=== PATIENT | male | born 1935 | race Caucasian/White ===

== ENCOUNTER → 2016-12-23 | Outpatient (CLI) | payer MEDICARE ==
[~2016-12-23] MED LIST: ACET1CAP18 PO; ALDA50TA2 PO; ALLO300T2 PO; AMLO5TAB2 PO; ASPI81CH CHEW; BENA25TA3 PO; CEFT500T3 PO; FURO20TA PO; MIDO2.5T PO; MULT1TAB84 PO
[2016-12-23 10:16] LABS: HEMATOCRIT 43.4 % (39.0-51.0); MEAN CELL VOLUME 97.6 FL (80.0-100.0); MEAN CORPUSCULAR HEMOGLOBIN 31.8 PG (27.0-34.0); MEAN CORPUSCULAR HGB CONC 32.5 % (32.0-36.0); PLATELET COUNT 55 TH/MM3 (150-450); RED BLOOD COUNT 4.44 MIL/MM3 (4.50-5.90); RED CELL DISTRIBUTION WIDTH 16.6 % (11.6-17.2); WHITE BLOOD COUNT 6.6 TH/MM3 (4.0-11.0)
[2016-12-23 10:52] LABS: ALKALINE PHOSPHATASE 204 U/L (45-117); TOTAL BILIRUBIN ADULT 1.6 MG/DL (0.2-1.0)
[2016-12-23 10:55] LABS: REVIEW FLAG FINAL
[2016-12-23 11:13] LABS: ALT (GPT) 32 U/L (12-78); AMYLASE 36 U/L (25-115); ANION GAP 8 MEQ/L (5-15); AST (GOT) 46 U/L (15-37); BLOOD UREA NITROGEN 14 MG/DL (7-18); CHLORIDE 102 MEQ/L (98-107); GLOMERULAR FILTRATION RATE 66 ML/MIN (>89); POTASSIUM 3.8 MEQ/L (3.5-5.1); SODIUM (NA) 137 MEQ/L (136-145)
== END ==
LOC: PLAB 08:13
PROVIDERS: ATTEND Family Medicine
DX: R10.10 Upper abdominal pain, unspecified (principal); R53.83 Other fatigue
CPT/HCPCS: 36415; 80053; 82150; 83690; 85027

== ENCOUNTER → 2016-12-26 | Outpatient (CLI) | payer MEDICARE ==
[2016-12-26 11:59] LABS: INTERNATIONAL NORMALIZED RATIO 1.1 RATIO; PROTHROMBIN TIME - PATIENT 12.3 SEC (9.8-11.6)
[2016-12-26 13:06] LABS: HEMATOCRIT 43.4 % (39.0-51.0); MEAN CELL VOLUME 97.9 FL (80.0-100.0); MEAN CORPUSCULAR HEMOGLOBIN 32.1 PG (27.0-34.0); MEAN CORPUSCULAR HGB CONC 32.8 % (32.0-36.0); PLATELET COUNT 54 TH/MM3 (150-450); RED BLOOD COUNT 4.43 MIL/MM3 (4.50-5.90); WHITE BLOOD COUNT 6.5 TH/MM3 (4.0-11.0)
[2016-12-26 13:08] LABS: REVIEW FLAG FINAL
[2016-12-26 13:27] LABS: WESTERGREN SEDIMENTATION RATE 13 mm/hr (0-20)
[2016-12-26 13:32] LABS: POTASSIUM 4.1 MEQ/L (3.5-5.1)
== END ==
LOC: PLAB 11:15
PROVIDERS: ATTEND Family Medicine
DX: R18.8 Other ascites (principal); D64.9 Anemia, unspecified; I10 Essential (primary) hypertension; M35.3 Polymyalgia rheumatica; K76.0 Fatty (change of) liver, not elsewhere classified; R16.1 Splenomegaly, not elsewhere classified
CPT/HCPCS: 36415; 82140; 82390; 82565; 83520; 84132; 84520; 85027; 85610; 85652

== ENCOUNTER → 2016-12-30 | Outpatient (CLI) | payer MEDICARE ==
[2017-01-05 22:17] LABS: HEREDITARY HEMOCHROM SPECIMEN WB Whole Blood (())
== END ==
LOC: PLAB 07:45
PROVIDERS: ATTEND Family Medicine
DX: D64.9 Anemia, unspecified (principal); I10 Essential (primary) hypertension; M35.3 Polymyalgia rheumatica; R18.8 Other ascites; K76.0 Fatty (change of) liver, not elsewhere classified; R16.1 Splenomegaly, not elsewhere classified; R94.5 Abnormal results of liver function studies; Z13.818 Encounter for screening for other digestive system disorders
CPT/HCPCS: 80074; 81256

== ENCOUNTER 2017-01-13 10:00 | Day surgery (SDC) | payer MEDICARE ==
[2017-01-13 10:27] VITALS: BP 120/64; PULSE 82; RESP 16; TEMP 96.9; O2SAT 95
[2017-01-13 11:15] VITALS: BP 119/65; PULSE 74; RESP 20; TEMP 98.4; O2SAT 91
[2017-01-13 11:30] VITALS: BP 117/65; PULSE 73; RESP 18; O2SAT 93
--- NOTE | 2017-01-13 11:45 | RADRPT ---
EXAM DATE/TIME: 01/13/2017 10:18 [facility] COMPARISON: No previous studies available for comparison. EXTERNAL COMPARISON: [facility], CT ABDOMEN & PELVIS W CONTRAST, Dec 24 2016. INDICATIONS : Ascites. MEDICAL HISTORY : Congestive heart failure. Fatty liver. Liver disease. Splenomegaly. Dyspena. Thyroid disease. Skin cancer. SURGICAL HISTORY : Tonsillectomy. Skin cancer removal. ENCOUNTER: Initial ACUITY: 3 weeks PAIN SCORE: 0/10 LOCATION: Right lower quadrant FLUID: Total volume of 4,200 cc of clear, red fluid was removed. Fluid was sent to lab for ordered studies. Post procedure scanning reveals no hematoma or other complication. TECHNIQUE: 1. Ultrasound guidance for abdominal paracentesis. 2. Paracentesis. The risks, benefits, and alternatives to ultrasound guided paracentesis were explained to the patient in detail including the risk of bleeding and infection. Written and verbal informed consent was obt ained. With the patient on the ultrasound table, ultrasound imaging was used to select the most appropriate approach for paracentesis. Overlying skin was prepped and draped in the usual sterile fashion and wi th a local anesthetic, a dermatotomy was made with an 11 blade scalpel. A 6 Maced[place] [id number] ca theter was introduced into the peritoneal cavity and fluid was collected. The patient tolerated the procedure well and left the ultrasound suite in stable condition. CONCLUSION: Uncomplicated ultrasound guided paracentesis. Brian Watters MD on January 13, 2017 at 11:43 Board Certified Radiologist. This report was verified electronically.
[2017-01-13 13:00] LABS: PERITONEAL HISTIOCYTES 8 %; PERITONEAL LYMPHS 87 %; PERITONEAL MONOS 5 %; PERITONEAL POLYS(SEGS) 0 %; PERITONEAL WBC 84 /MM3 (0-10)
== END 2017-01-13 11:45 | disposition home or self-care (01) ==
LOC: HRAD 10:00 → HRIP 10:00 → HRAD 11:45
PROVIDERS: ATTEND Internal Medicine Gastroenterology
DX: R18.8 Other ascites (principal); Z85.828 Personal history of other malignant neoplasm of skin; K76.0 Fatty (change of) liver, not elsewhere classified; R79.89 Other specified abnormal findings of blood chemistry
CPT/HCPCS: 49083; 82042; 84157; 87070; 87205; 88112; 88305; 89051; C1729; 36415; 82103; 82105; 82525; 82728; 83520; 83540; 83550; 85025; 85610; 85730; 86038; 86256; 86317; 86708

== ENCOUNTER → 2017-01-13 | Outpatient (CLI) | payer MEDICARE ==
[2017-01-13 08:51] LABS: APTT (PATIENT) 32.4 SEC (24.3-30.1); INTERNATIONAL NORMALIZED RATIO 1.2 RATIO; PROTHROMBIN TIME - PATIENT 13.3 SEC (9.8-11.6)
[2017-01-13 09:23] LABS: AUTOMATED NEUTROPHIL # 1.3 TH/MM3 (1.8-7.7); BASOPHIL % 0.9 % (0.0-2.0); EOSINOPHIL % 0.1 % (0.0-4.0); LYMPH % 65.6 % (9.0-44.0); LYMPHOCYTE # 3.3 TH/MM3 (1.0-4.8); MEAN CELL VOLUME 97.4 FL (80.0-100.0); MEAN CORPUSCULAR HEMOGLOBIN 32.4 PG (27.0-34.0); MEAN CORPUSCULAR HGB CONC 33.2 % (32.0-36.0); MONO % 8.4 % (0.0-8.0); PLATELET COUNT 50 TH/MM3 (150-450); RED BLOOD COUNT 4.41 MIL/MM3 (4.50-5.90); RED CELL DISTRIBUTION WIDTH 18.1 % (11.6-17.2)
[2017-01-13 09:27] LABS: HEMO FLAGS AUTO DIFF
[2017-01-13 09:52] LABS: FERRITIN 91 NG/ML (26-388); TRANSFERRIN IRON PROFILE 295 MG/DL (200-360)
[2017-01-13 10:14] LABS: PLATELET ESTIMATE SMEAR LOW (NORMAL); PLATELET MORPHOLOGY NORMAL (NORMAL); SCAN/DIFF AUTO DIFF CONFIRMED
[2017-01-13 16:47] LABS: HEPATITIS B SURFACE ANTIBODY 0 mIU/mL
[2017-01-14 17:30] LABS: ANA SCREEN NEG (NEG)
[2017-01-14 23:52] LABS: MITOCHONDRIAL ABS LESS THAN 20.0 U (())
== END ==
LOC: PLAB 07:49
PROVIDERS: ATTEND Internal Medicine Gastroenterology
DX: R79.89 Other specified abnormal findings of blood chemistry (principal); K76.0 Fatty (change of) liver, not elsewhere classified
CPT/HCPCS: 36415; 82103; 82105; 82525; 82728; 83520; 83540; 83550; 85025; 85610; 85730; 86038; 86256; 86317; 86708

== ENCOUNTER 2017-02-01 12:22 | Inpatient (IN) | payer MEDICARE ==
[~2017-02-01] VITALS: Ht 177.8 cm; Wt 74.5 kg
[2017-02-01] VITALS (12 sets, daily range): BP systolic 97–126; BP diastolic 58–70; PULSE 91–99; RESP 15–28; TEMP 96.2–97.9; O2SAT 89–94
--- NOTE | 2017-02-01 12:34 | PD ---
Physical Exam Date Seen by Provider: Feb 01, 2017 Time Seen by Provider: 12:28 Narrative 81 y/o male with Hx Increased Ascites from Liver Disease. Followed by Dr. Renae. Had 4 liters Fluid removed with paracentesis on January 13. On Lasix 40 BID as well as Spironolactone 50mg BID for week without improvment. Patient now having increased Lower extremity edema and abdominal distension as well as O2 sat of 91 %. Denies Chest Pain. Denies Fever. V/S stable. Labs/CXR and EKG Ordered. Patient awaiting Med Bed Placement. Data Data Last Documented VS Vital Signs Date Time Temp Pulse Resp B/P Pulse Ox O2 Delivery O2 Flow Rate FiO2 02/01/17 13:14 91 Nasal Cannula 2 02/01/17 12:24 97.5 99 15 118/66 Orders Electrocardiogram (02/01/17 12:34) B-Type Natriuretic Peptide (02/01/17 12:34) Ckmb (Isoenzyme) Profile (02/01/17 12:34) Complete Blood Count With Diff (02/01/17 12:34) Comprehensive Metabolic Panel (02/01/17 12:34) Magnesium (Mg) (02/01/17 12:34) Prothrombin Time / Inr (Pt) (02/01/17 12:34) Act Partial Throm Time (Ptt) (02/01/17 12:34) Troponin I (02/01/17 12:34) Ecg Monitoring (02/01/17 12:34) Bilateral Bp Monitoring (02/01/17 12:34) Iv Access Insert/Monitor (02/01/17 12:34) Oximetry (02/01/17 12:34) Oxygen Administration (02/01/17 12:34) Chest, Pa & Lat (02/01/17 12:40) MDM Medical Record Reviewed: Yes Supervised Visit with PALOMA: Yes Condition: Stable Justin Heard Feb 01, 2017 12:34
[2017-02-01] MEDS ORDERED: ALDA50TA2 PO (13:19)
[2017-02-01] MEDS ORDERED: FURO20TA PO (13:19)
[2017-02-01] MEDS ORDERED: BENA25TA3 PO (13:19)
[2017-02-01] MEDS ORDERED: ALLO300T2 PO (13:19)
[2017-02-01] MEDS ORDERED: MULT1TAB84 PO (13:19)
[2017-02-01] MEDS ORDERED: ACET1CAP18 PO (13:19)
[2017-02-01] MEDS ORDERED: AMLO5TAB2 PO (13:19)
[2017-02-01] MEDS ORDERED: ASPI81CH CHEW (13:19)
--- NOTE | 2017-02-01 13:51 | RADRPT ---
EXAM DATE/TIME: 02/01/2017 12:45 [facility] COMPARISON: No previous studies available for comparison. INDICATIONS : Shortness of breath and weakness. MEDICAL HISTORY : Cirrhosis. SURGICAL HISTORY : None. ENCOUNTER: Initial ACUITY: 3 days PAIN SCORE: 0/10 LOCATION: Bilateral chest FINDINGS: PA and lateral views of the chest. Low lung volumes. Small bilateral pleural effusions. Elevation of right hemidiaphragm anteriorly. Mild hazy opacity at the left lung base indicating atelectasis verses mild consolidation. Mild cardiac silhouette enlargement. No evidence of pneumothorax. CONCLUSION: Low lung volumes. Small pleural effusions. Left lower lung atelectasis versus mild consolidation. Marco Lizama MD on February 01, 2017 at 13:48 Board Certified Radiologist. This report was verified electronically.
[2017-02-01 14:16] LABS: AUTOMATED NEUTROPHIL # 2.5 TH/MM3 (1.8-7.7); BASOPHIL # 0.1 TH/MM3 (0-0.2); BASOPHIL % 0.4 % (0.0-2.0); HEMATOCRIT 47.8 % (39.0-51.0); LYMPH % 77.5 % (9.0-44.0); LYMPHOCYTE # 11.8 TH/MM3 (1.0-4.8); MEAN CELL VOLUME 100.2 FL (80.0-100.0); MEAN CORPUSCULAR HEMOGLOBIN 33.3 PG (27.0-34.0); MEAN CORPUSCULAR HGB CONC 33.2 % (32.0-36.0); MONO % 5.6 % (0.0-8.0); NEUT % 16.5 % (16.0-70.0); PLATELET COUNT 66 TH/MM3 (150-450); RED BLOOD COUNT 4.77 MIL/MM3 (4.50-5.90); RED CELL DISTRIBUTION WIDTH 21.2 % (11.6-17.2); WHITE BLOOD COUNT 15.3 TH/MM3 (4.0-11.0)
[2017-02-01 14:22] LABS: HEMO FLAGS AUTO DIFF
[2017-02-01 14:44] LABS: APTT (PATIENT) 36.7 SEC (24.3-30.1); INTERNATIONAL NORMALIZED RATIO 1.2 RATIO; PROTHROMBIN TIME - PATIENT 13.3 SEC (9.8-11.6)
[2017-02-01 15:33] LABS: NEUTROPHIL # MANUAL DIFF 4.3 TH/MM3 (1.8-7.7); POLYS (SEG NEUTROPHILS) 28 % (16-70); WBC DIFF SAMPLE 100
[2017-02-01 15:37] LABS: PLATELET ESTIMATE SMEAR LOW (NORMAL); PLATELET MORPHOLOGY NORMAL (NORMAL); SCAN/DIFF FINAL DIFF MANUAL
[2017-02-01] MEDS ORDERED: FUROSEMIDE 40 MG/4 ML VIAL IV PUSH ONE (16:30)
[2017-02-01 17:36] LABS: ALKALINE PHOSPHATASE 276 U/L (45-117)
[2017-02-01 17:41] LABS: ALT (GPT) 80 U/L (12-78); ANION GAP 10 MEQ/L (5-15); AST (GOT) 101 U/L (15-37); BICARBONATE 25.8 MEQ/L (21.0-32.0); BLOOD UREA NITROGEN 42 MG/DL (7-18); CHLORIDE 97 MEQ/L (98-107); CREATINE KINASE 41 U/L (39-308); GLOMERULAR FILTRATION RATE 32 ML/MIN (>89); MAGNESIUM 2.6 MG/DL (1.5-2.5); POTASSIUM 4.7 MEQ/L (3.5-5.1); SODIUM (NA) 133 MEQ/L (136-145); TOTAL BILIRUBIN ADULT 2.2 MG/DL (0.2-1.0)
--- NOTE | 2017-02-01 19:24 | PD ---
HPI Chief Complaint: Respiratory Distress Time Seen by Provider: 19:23 Travel History International Travel<30 days: No Contact w/Intl Traveler<30days: No Traveled to known affect area: No History of Present Illness HPI Patient is an 81-year-old male with history of cirrhosis who comes in complaining of shortness of breath. He was recently diagnosed with cirrhosis about a month ago. His says that he was started on Lasix and Aldactone. He has been taking these medications, but he has been retaining fluid. He has had swelling of his legs, testicles abdomen. He denies any fever or chills. He denies any pain to his abdomen. He did have the ascites drained by IR about 2 weeks ago. [facility] Past Medical History Diminished Hearing: No Gastrointestinal Disorders: Yes (enlarged liver, spleen. Paracentesis 01/13) Hypertension: Yes Inguinal Hernia: Yes Influenza Vaccination: Yes ?: Not Past Surgical History Tonsillectomy: Yes Social History Alcohol Use: No Tobacco Use: No Allergies-Medications (Allergen,Severity, Reaction): Coded Allergies: Bactrim (Verified Allergy, Severe, Hives, 02/01/17) Reported Meds & Prescriptions Reported Meds & Active Scripts Active Reported Tylenol (Acetaminophen) 325 Mg Cap 325 Mg PO Q6H PRN Multivitamin Adults (Multiple Vitamins W/ Minerals) 1 Tab 1 Tab PO DAILY Furosemide 20 Mg Tab 20 Mg PO BID Benadryl Allergy (Diphenhydramine HCl) 25 Mg Tab 25 Mg PO Q6H PRN Aspirin 81 Mg Chew 81 Mg CHEW DAILY Amlodipine (Amlodipine Besylate) 5 Mg Tab 5 Mg PO DAILY Allopurinol 300 Mg Tab 300 Mg PO DAILY Aldactone (Spironolactone) 50 Mg Tab 50 Mg PO BIDPC Review of Systems Except as stated in HPI: all other systems reviewed are Neg General / Constitutional: No: Fever, Chills HENT: No: Headaches, Lightheadedness Cardiovascular: No: Chest Pain or Discomfort Respiratory: Positive: Shortness of Breath, No: Cough Gastrointestinal: No: Nausea, Vomiting Musculoskeletal: Positive: Edema Skin: No Rash, No Change in Pigmentation Neurologic: No: Weakness, Dizziness Physical Exam Narrative GENERAL: Awake and alert, in no acute distress. SKIN: Focused skin assessment warm/dry. HEAD: Atraumatic. Normocephalic. EYES: Pupils equal and round. No scleral icterus. ENT: Mucous membranes pink and moist. NECK: Trachea midline. No JVD. CARDIOVASCULAR: Regular rate and rhythm. No murmur appreciated. RESPIRATORY: No accessory muscle use. Clear to auscultation. Breath sounds equal bilaterally. GASTROINTESTINAL: Abdomen large and distended, full of ascitic fluid. No tenderness to palpation. Edema of the testicles. No erythema or warmth of the testicles. MUSCULOSKELETAL: No obvious deformities. No clubbing. No cyanosis. Large edema of bilateral lower extremities. NEUROLOGICAL: Awake and alert. No obvious cranial nerve deficits. Motor grossly within normal limits. Normal speech. PSYCHIATRIC: Appropriate mood and affect; insight and judgment normal. Data Data Last Documented VS Vital Signs Date Time Temp Pulse Resp B/P Pulse Ox O2 Delivery O2 Flow Rate FiO2 02/01/17 15:30 94 26 111/68 94 Nasal Cannula 2 02/01/17 12:24 97.5 Orders Electrocardiogram (02/01/17 12:34) B-Type Natriuretic Peptide (02/01/17 12:34) Ckmb (Isoenzyme) Profile (02/01/17 12:34) Complete Blood Count With Diff (02/01/17 12:34) Comprehensive Metabolic Panel (02/01/17 12:34) Magnesium (Mg) (02/01/17 12:34) Prothrombin Time / Inr (Pt) (02/01/17 12:34) Act Partial Throm Time (Ptt) (02/01/17 12:34) Troponin I (02/01/17 12:34) Ecg Monitoring (02/01/17 12:34) Bilateral Bp Monitoring (02/01/17 12:34) Iv Access Insert/Monitor (02/01/17 12:34) Oximetry (02/01/17 12:34) Oxygen Administration (02/01/17 12:34) Chest, Pa & Lat (02/01/17 12:40) Furosemide Inj (Lasix Inj) (02/01/17 16:30) Admit Order (Ed Use Only) (02/01/17 ) Labs Laboratory Tests Test 02/01/17 02/01/17 13:40 17:04 White Blood Count 15.3 TH/MM3 Red Blood Count 4.77 MIL/MM3 Hemoglobin 15.9 GM/DL Hematocrit 47.8 % Mean Corpuscular Volume 100.2 FL Mean Corpuscular Hemoglobin 33.3 PG Mean Corpuscular Hemoglobin 33.2 % Concent Red Cell Distribution Width 21.2 % Platelet Count 66 TH/MM3 Mean Platelet Volume 9.4 FL Neutrophils (%) (Auto) 16.5 % Lymphocytes (%) (Auto) 77.5 % Monocytes (%) (Auto) 5.6 % Eosinophils (%) (Auto) 0.0 % Basophils (%) (Auto) 0.4 % Neutrophils # (Auto) 2.5 TH/MM3 Lymphocytes # (Auto) 11.8 TH/MM3 Monocytes # (Auto) 0.9 TH/MM3 Eosinophils # (Auto) 0.0 TH/MM3 Basophils # (Auto) 0.1 TH/MM3 CBC Comment AUTO DIFF Differential Total Cells 100 Counted Neutrophils % (Manual) 28 % Lymphocytes % 66 % Monocytes % 6 % Neutrophils # (Manual) 4.3 TH/MM3 Differential Comment FINAL DIFF MANUAL Platelet Estimate LOW Platelet Morphology Comment NORMAL Red Cell Morphology Comment Prothrombin Time 13.3 SEC Prothromb Time International 1.2 RATIO Ratio Activated Partial 36.7 SEC Thromboplast Time B-Type Natriuretic Peptide 44 PG/ML Sodium Level 133 MEQ/L Potassium Level 4.7 MEQ/L Chloride Level 97 MEQ/L Carbon Dioxide Level 25.8 MEQ/L Anion Gap 10 MEQ/L Blood Urea Nitrogen 42 MG/DL Creatinine 1.99 MG/DL Estimat Glomerular Filtration 32 ML/MIN Rate Random Glucose 118 MG/DL Calcium Level 8.8 MG/DL Magnesium Level 2.6 MG/DL Total Bilirubin 2.2 MG/DL Aspartate Amino Transf 101 U/L (AST/SGOT) Alanine Aminotransferase 80 U/L (ALT/SGPT) Alkaline Phosphatase 276 U/L Total Creatine Kinase 41 U/L Troponin I LESS THAN 0.02 NG/ML Total Protein 6.2 GM/DL Albumin 3.1 GM/DL [facility] Medical Decision Making Medical Screen Exam Complete: Yes Emergency Medical Condition: Yes Medical Record Reviewed: Yes Interpretation(s) ECG shows sinus rhythm at 91, no ST elevation or depression. Differential Diagnosis Pneumonia versus anasarca versus CHF versus liver failure Narrative Course Patient is an 81-year-old male comes in complaining of shortness of breath. Exam shows anasarca. IV established and labs sent. Labs show creatinine of 1.99. Patient has a platelet count of 66 with an elevated PT and PTT. Patient has no tenderness to his abdomen making SBP unlikely currently. He is fluid overloaded. Given Lasix. Patient will require paracentesis by IR due to coagulopathy. Patient will be admitted for further management. Diagnosis Primary Impression: Anasarca Admitting Information Admitting Physician Requests: Admit Condition: Stable Vanessa Ag MD Feb 01, 2017 19:24
[2017-02-01] MEDS ORDERED: SODIUM CHLORIDE 0.9% FLUSH 10 ML FLUSH IV FLUSH PRN (19:30)
[2017-02-01] MEDS ORDERED: NALOXONE HCL 0.4 MG/ML AMP IV PRN (19:30)
[2017-02-01] MEDS ORDERED: ONDANSETRON HCL 4 MG/2 ML VIAL IVP PRN (19:30)
[2017-02-01] MEDS: DOCUSATE SODIUM 100 MG CAP PO SCH ×2 (19:48→21:41)
[2017-02-01] MEDS: SODIUM CHLORIDE 0.9% FLUSH 10 ML FLUSH IV FLUSH SCH (19:49)
[2017-02-01] MEDS ORDERED: diphenhydrAMINE HCL 25 MG CAP PO PRN (20:00)
[2017-02-01] MEDS: FUROSEMIDE 40 MG TAB PO SCH (23:26)
[2017-02-02] VITALS (9 sets, daily range): BP systolic 94–118; BP diastolic 53–62; PULSE 84–93; RESP 18–20; TEMP 97.7–99.4; O2SAT 88–92
--- NOTE | 2017-02-02 00:09 | HHI.HP ---
[facility] Service [facility] Primary [facility] Physician Oumar Renae MD Admission Diagnosis Anasarca, SOB Diagnoses: (1) Anasarca Diagnosis: Principal (2) EVE (acute kidney injury) Travel History International Travel<30 Days: No Contact w/Intl Traveler <30 Da: No Traveled to Known Affected Are: No History of Present Illness Mr. Yadav is an 81 year old male. He has a recent history of Acites and is returning today with recurrence of symptoms. His last (and first) paracentesis was about two weeks ago. He is unaware of the cause and reports no knowledge of liver disease. The onset of his ascites has been gradual over the two weeks. He feels it is as bad as previously. No fevers are reported. No abdominal pain other than discomfort from ascites. Additionally tonight his renal function is worse than baseline (CKD) with a creatinine of 1.99. WBCs are elevated, but neutrophils are not, suggesting a reactive phenomenon rather than infection. Review of Systems Constitutional: COMPLAINS OF: Fatigue, Weight gain, DENIES: Fever, Chills Eyes: DENIES: Blurred vision, Diplopia Ears, nose, mouth, throat: DENIES: Vertigo Respiratory: DENIES: Wheezing, Hemoptysis Cardiovascular: DENIES: Chest pain, Palpitations Gastrointestinal: COMPLAINS OF: Abdominal pain, DENIES: Black stools, Bloody stools, Difficulty Swallowing Musculoskeletal: DENIES: Joint pain, Stiffness Integumentary: DENIES: Abnormal pigmentation Hematologic/lymphatic: DENIES: Bruising Immunologic/allergic: DENIES: Eczema Neurologic: DENIES: Abnormal gait, Paresthesias Psychiatric: DENIES: Anxiety Past Family Social History Past Medical History CKD Past Surgical History paracentesis two weeks ago Reported Medications Reported Meds & Active Scripts Active Reported Tylenol (Acetaminophen) 325 Mg Cap 325 Mg PO Q6H PRN Multivitamin Adults (Multiple Vitamins W/ Minerals) 1 Tab 1 Tab PO DAILY Furosemide 20 Mg Tab 20 Mg PO BID Benadryl Allergy (Diphenhydramine HCl) 25 Mg Tab 25 Mg PO Q6H PRN Aspirin 81 Mg Chew 81 Mg CHEW DAILY Amlodipine (Amlodipine Besylate) 5 Mg Tab 5 Mg PO DAILY Allopurinol 300 Mg Tab 300 Mg PO DAILY Aldactone (Spironolactone) 50 Mg Tab 50 Mg PO BIDPC Allergies: Coded Allergies: Bactrim (Verified Allergy, Severe, Hives, 02/01/17) Active Ordered Medications Administered Medications Medications (Trade) Dose Ordered Sig/Ander Route PRN Reason Start Time Stop Time Status Last Admin Dose Admin Sodium Chloride (NS Flush) 2 ml BID IV FLUSH 02/01/17 21:00 02/01/17 19:49 Docusate Sodium (Colace) 100 mg Q12H PO 02/01/17 21:00 02/01/17 21:41 Furosemide (Lasix) 40 mg Q6HR PO 02/02/17 00:00 02/01/17 23:26 Family History none Social History Alcohol use Hx of Smoking in the past Physical Exam Vital Signs Vital Signs Date Time Temp Pulse Resp B/P Pulse Ox O2 Delivery O2 Flow Rate FiO2 02/01/17 23:35 90 Nasal Cannula 4.00 02/01/17 23:34 104/66 90 02/01/17 23:32 88 Nasal Cannula 3.00 02/01/17 23:30 92 104/66 90 02/01/17 23:27 96.2 91 24 97/58 89 02/01/17 21:00 Nasal Cannula 3.00 02/01/17 20:04 95 22 110/68 92 Nasal Cannula 3 02/01/17 19:30 95 28 100/65 90 Nasal Cannula 5 02/01/17 18:47 97.9 99 25 112/70 91 Nasal Cannula 2 113/70 02/01/17 15:30 94 26 111/68 94 Nasal Cannula 2 02/01/17 14:00 92 25 109/67 92 Nasal Cannula 2 02/01/17 13:14 91 Nasal Cannula 2 02/01/17 13:14 91 02/01/17 12:24 97.5 99 15 118/66 91 Physical Exam GENERAL: NAD, A&Ox3 SKIN: Warm and dry. HEAD: Normocephalic. EYES: No scleral icterus. No injection or drainage. NECK: Supple, trachea midline. No JVD or lymphadenopathy. CARDIOVASCULAR: Regular rate and rhythm without murmurs, gallops, or rubs. RESPIRATORY: Breath sounds equal bilaterally. No accessory muscle use. Crackles at bases. GASTROINTESTINAL: Distended, tender without guarding, fluid filled MUSCULOSKELETAL: No cyanosis. Bilateral lower extremity edema (3+) BACK: Nontender without obvious deformity. No CVA tenderness. Laboratory Laboratory Tests Test 02/01/17 02/01/17 13:40 17:04 White Blood Count 15.3 Red Blood Count 4.77 Hemoglobin 15.9 Hematocrit 47.8 Mean Corpuscular Volume 100.2 Mean Corpuscular Hemoglobin 33.3 Mean Corpuscular Hemoglobin 33.2 Concent Red Cell Distribution Width 21.2 Platelet Count 66 Mean Platelet Volume 9.4 Neutrophils (%) (Auto) 16.5 Lymphocytes (%) (Auto) 77.5 Monocytes (%) (Auto) 5.6 Eosinophils (%) (Auto) 0.0 Basophils (%) (Auto) 0.4 Neutrophils # (Auto) 2.5 Lymphocytes # (Auto) 11.8 Monocytes # (Auto) 0.9 Eosinophils # (Auto) 0.0 Basophils # (Auto) 0.1 CBC Comment AUTO DIFF Differential Total Cells 100 Counted Neutrophils % (Manual) 28 Lymphocytes % 66 Monocytes % 6 Neutrophils # (Manual) 4.3 Differential Comment FINAL DIFF MANUAL Platelet Estimate LOW Platelet Morphology Comment NORMAL Red Cell Morphology Comment Prothrombin Time 13.3 Prothromb Time International 1.2 Ratio Activated Partial 36.7 Thromboplast Time B-Type Natriuretic Peptide 44 Sodium Level 133 Potassium Level 4.7 Chloride Level 97 Carbon Dioxide Level 25.8 Anion Gap 10 Blood Urea Nitrogen 42 Creatinine 1.99 Estimat Glomerular Filtration 32 Rate Random Glucose 118 Calcium Level 8.8 Magnesium Level 2.6 Total Bilirubin 2.2 Aspartate Amino Transf 101 (AST/SGOT) Alanine Aminotransferase 80 (ALT/SGPT) Alkaline Phosphatase 276 Total Creatine Kinase 41 Troponin I LESS THAN 0.02 Total Protein 6.2 Albumin 3.1 Result Diagram: 02/01/17 1340 02/01/17 1704 Imaging Last Impressions Chest X-Ray 02/01/17 1240 Signed Impressions: Service Date/Time: Wednesday, February 01, 2017 12:45 - CONCLUSION: Low lung volumes. Small pleural effusions. Left lower lung atelectasis versus mild consolidation. Marco Lizama MD Assessment and Plan Problem List: (1) Anasarca ICD Code: R60.1 Status: Acute Plan: GI Consult He may need another paracentesis Lasix QID IV Follow renal function (2) EEV (acute kidney injury) ICD Code: N17.9 Status: Acute Plan: Diuresis Follow renal function If worsening occurs, nephrology will be consulted If improvement occurs, will continue to monitor Code Status Full Code Physician Certification 2 Midnight Certification Type: Admission for Inpatient Services Order for Inpatient Services The services are ordered in accordance with Medicare regulations or non- Medicare payer requirements, as applicable. In the case of services not specified as inpatient-only, they are appropriately provided as inpatient services in accordance with the 2-midnight benchmark. Estimated LOS (days): 3 days is the estimated time the patient will need to remain in the hospital, assuming treatment plan goals are met and no additional complications. Post-Hospital Plan: Andrew Guzman MD February 02, 2017 00:09
[2017-02-02] MEDS: FUROSEMIDE 40 MG TAB PO SCH ×2 (06:00→13:16)
[2017-02-02 06:20] LABS: BACTERIA, URINE FEW /hpf; BLOOD, URINE NEG (NEG); GLUCOSE,URINE NEG (NEG); HYALINE CAST, URINE 11 /lpf (RARE); KETONE, URINE NEG (NEG); MUCUS URINE FEW /lpf (OCC); NITRITE,URINE NEG (NEG); RENAL EPITHELIAL CELLS <1 /hpf; URINE COLOR YELLOW (YELLW/STRAW)
[2017-02-02 06:21] LABS: COMMENT (UR) CULT NOT INDICATED; CULTURE IF INDICATED CULT NOT INDICATED
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
[2017-02-02] MEDS: SPIRONOLACTONE 50 MG TAB PO SCH ×2 (09:00→18:28)
[2017-02-02] MEDS: DOCUSATE SODIUM 100 MG CAP PO SCH ×2 (09:00→21:46)
[2017-02-02] MEDS ORDERED: amLODIPine BESYLATE 5 MG TAB PO SCH (09:00)
[2017-02-02] MEDS: ALLOPURINOL 300 MG TAB PO SCH (09:04)
[2017-02-02] MEDS: MULTIVITAMINS/MINERALS THERAPEUTIC TAB PO SCH (09:04)
[2017-02-02] MEDS: ASPIRIN 81 MG CHEW TAB CHEW SCH (09:04)
[2017-02-02] MEDS: SODIUM CHLORIDE 0.9% FLUSH 10 ML FLUSH IV FLUSH SCH ×2 (09:05→21:46)
[2017-02-02 09:19] LABS: ALKALINE PHOSPHATASE 247 U/L (45-117); ALT (GPT) 63 U/L (12-78); ANION GAP 12 MEQ/L (5-15); BICARBONATE 25.4 MEQ/L (21.0-32.0); BLOOD UREA NITROGEN 45 MG/DL (7-18); CHLORIDE 97 MEQ/L (98-107); GLOMERULAR FILTRATION RATE 35 ML/MIN (>89); SODIUM (NA) 134 MEQ/L (136-145)
[2017-02-02 09:21] LABS: AST (GOT) 70 U/L (15-37); POTASSIUM 4.8 MEQ/L (3.5-5.1); TOTAL BILIRUBIN ADULT 2.5 MG/DL (0.2-1.0)
--- NOTE | 2017-02-02 15:02 | HHI.PR ---
Subjective Remarks Patient resting in bed, afebrile, abdominal discomfort is less He is scheduled for paracentesis today between 2-3 Objective Vitals Vital Signs Date Time Temp Pulse Resp B/P Pulse Ox O2 Delivery O2 Flow Rate FiO2 02/02/17 12:00 98.1 84 18 100/53 91 02/02/17 08:00 98.4 91 20 94/53 90 02/02/17 08:00 90 02/02/17 08:00 Nasal Cannula 4.00 02/02/17 06:45 90 02/02/17 04:00 98.2 89 18 110/61 88 02/02/17 04:00 Nasal Cannula 4.00 02/02/17 01:00 98.5 93 19 103/60 90 02/01/17 23:35 90 Nasal Cannula 4.00 02/01/17 23:34 104/66 90 02/01/17 23:32 88 Nasal Cannula 3.00 02/01/17 23:30 92 104/66 90 02/01/17 23:27 96.2 91 24 97/58 89 02/01/17 21:49 92 02/01/17 21:00 Nasal Cannula 3.00 02/01/17 21:00 97.0 96 18 126/63 92 02/01/17 20:04 95 22 110/68 92 Nasal Cannula 3 02/01/17 19:30 95 28 100/65 90 Nasal Cannula 5 02/01/17 18:47 97.9 99 25 112/70 91 Nasal Cannula 2 113/70 02/01/17 15:30 94 26 111/68 94 Nasal Cannula 2 I/O 02/01/17 02/01/17 02/01/17 02/02/17 02/02/17 02/02/17 07:00 15:00 23:00 07:00 15:00 23:00 Intake Total 240 ml Output Total 150 ml 400 ml Balance -150 ml -160 ml Intake Oral 240 ml Output Urine Total 150 ml 400 ml # Voids 1 Result Diagram: 02/01/17 1340 02/02/17 0801 Objective Remarks GENERAL: This is a well-nourished, well-developed patient, in no apparent distress. SKIN: No rashes, warm and dry HEAD: Atraumatic. Normocephalic. EYES: Pupils equal round and reactive. Extraocular motions intact. No scleral icterus. ENT: Nose without bleeding, or drainage, Airway patent. NECK: Trachea midline. Supple CARDIOVASCULAR: Regular rate and rhythm without murmurs, gallops, or rubs. RESPIRATORY: Fair air entry bilaterally. No wheezes, rales, or rhonchi. GASTROINTESTINAL: Abdomen soft, mildly tender with positive distention. Positive shifting dullness Positive bowel sounds MUSCULOSKELETAL: +2 lower extremity edema without clubbing, cyanosis, Pedal pulses appreciated NEUROLOGICAL: Awake and alert. Moves all extremity. Normal speech.no focal neurological deficit A/P Problem List: (1) Anasarca ICD Code: R60.1 Status: Acute (2) EVE (acute kidney injury) ICD Code: N17.9 Status: Acute Assessment and Plan 81 years old male admitted with Diffuse anasarca Ascites due to liver cirrhosis Dyspnea rule out hepatopulmonary syndrome Left lower lobe consolidation versus atelectasis on chest x-ray EVE on CKD EVE rule out hepatorenal syndrome Leukocytosis or left shift Thrombocytopenia mostly due to alcoholism Increase transaminase due to liver cirrhosis with increased alkaline phosphatase DVT prophylaxis with SCD will avoid chemical due to liver cirrhosis and thrombocytopenia, INR 1.2 Plan: Admit to inpatient Started diuretic Scheduled for paracentesis to send fluid for analysis I will start Rocephin prophylactically for SBP GI consulted appreciated their input Continue Spironolactone, monitor BMP Monitor CBC, LFT Saima Dee MD February 02, 2017 15:02
[2017-02-02] MEDS ORDERED: LIDOCAINE 1%/EPINEPHrine 1:100,000 SOLN 20 ML VIAL ONE (15:49)
[2017-02-02] MEDS ORDERED: MIDAZOLAM HCL 5 MG/5 ML VIAL ONE (16:16)
[2017-02-02] MEDS ORDERED: fentaNYL CITRATE 250 MCG/5 ML AMP ONE (16:16)
[2017-02-02] MEDS: cefTRIAXone INJ 2,000 MG in SODIUM CHLORIDE 0.9% INJ 100 ML IV SCH (17:50)
[2017-02-02] MEDS: FUROSEMIDE 40 MG/4 ML VIAL IV PUSH SCH (18:28)
--- NOTE | 2017-02-02 23:07 | EKG ---
Date Performed: 02/01/2017 Time Performed: 13:31:24 PTAGE: 81 years EKG: Sinus rhythm NORMAL ECG NO PREVIOUS TRACING DOCTOR: Kenan Roberts Interpretating Date/Time 02/02/2017 23:05:29
[2017-02-03] VITALS (10 sets, daily range): BP systolic 86–102; BP diastolic 50–60; PULSE 80–93; RESP 16–20; TEMP 97–98.6; O2SAT 89–92
[2017-02-03] MEDS: cefTRIAXone INJ 2,000 MG in SODIUM CHLORIDE 0.9% INJ 100 ML IV SCH ×2 (03:33→16:37)
[2017-02-03 08:49] LABS: AUTOMATED NEUTROPHIL # 1.8 TH/MM3 (1.8-7.7); BASOPHIL # 0.1 TH/MM3 (0-0.2); BASOPHIL % 0.9 % (0.0-2.0); HEMATOCRIT 43.1 % (39.0-51.0); LYMPHOCYTE # 5.6 TH/MM3 (1.0-4.8); MEAN CELL VOLUME 99.3 FL (80.0-100.0); MEAN CORPUSCULAR HGB CONC 34.2 % (32.0-36.0); MONO % 7.1 % (0.0-8.0); PLATELET COUNT 56 TH/MM3 (150-450); RED BLOOD COUNT 4.34 MIL/MM3 (4.50-5.90); RED CELL DISTRIBUTION WIDTH 21.1 % (11.6-17.2)
[2017-02-03 08:57] LABS: HEMO FLAGS AUTO DIFF
[2017-02-03] MEDS: FUROSEMIDE 40 MG/4 ML VIAL IV PUSH SCH (09:00)
[2017-02-03] MEDS: SPIRONOLACTONE 50 MG TAB PO SCH (09:00)
[2017-02-03] MEDS: MULTIVITAMINS/MINERALS THERAPEUTIC TAB PO SCH (09:11)
[2017-02-03] MEDS: ASPIRIN 81 MG CHEW TAB CHEW SCH (09:12)
[2017-02-03] MEDS: SODIUM CHLORIDE 0.9% FLUSH 10 ML FLUSH IV FLUSH SCH ×2 (09:12→20:32)
[2017-02-03] MEDS: ALLOPURINOL 300 MG TAB PO SCH (09:12)
[2017-02-03] MEDS: DOCUSATE SODIUM 100 MG CAP PO SCH ×2 (09:12→20:32)
[2017-02-03 09:25] LABS: BICARBONATE 26.5 MEQ/L (21.0-32.0); INDIRECT BILIRUBIN 0.8 MG/DL (0.0-0.8); POTASSIUM 4.4 MEQ/L (3.5-5.1); TOTAL BILIRUBIN ADULT 1.6 MG/DL (0.2-1.0)
--- NOTE | 2017-02-03 09:55 | HHI.GIFU ---
GI Follow-up Note Consult Follow-up Subjective: Patient laying in bed comfortably, no new complaints. Abdomen feels better s/p paracentesis and liver biopsy; no abd. pain. The pedal edema has decreased. Objective: PHYSICAL EXAMINATION: Vitals signs: His blood pressure is running 86-90 systolic No fever HEENT: EOMI ABDOMEN: Soft, nondistended, nontender EXTREMITIES:Less pedal edema. Available Data (labs, X- Rays, Procedues) : Liver biopsy path report pending; ascitic fluid was not sent of studies as this had been done before, showing labs consistent with portal hypertension. Anti-hypertensive and diuretic medications on hold because of his low blood pressure. A two-gram diet is recommended. Will follow. ASSESSMENT/PLAN: It was a pleasure seeing Will Yadav. Entered by: Fabián Ballard MD February 03, 2017 09:55
[2017-02-03 10:07] LABS: NEUTROPHIL # MANUAL DIFF 1.7 TH/MM3 (1.8-7.7); POLYS (SEG NEUTROPHILS) 21 % (16-70); WBC DIFF SAMPLE 100
[2017-02-03 10:08] LABS: PLATELET ESTIMATE SMEAR LOW (NORMAL); PLATELET MORPHOLOGY NORMAL (NORMAL)
[2017-02-03 10:09] LABS: SCAN/DIFF FINAL DIFF MANUAL
--- NOTE | 2017-02-03 13:54 | HHI.PR ---
Subjective Remarks Patient resting in bed, mild lightheaded otherwise no chest pain or dizziness or blurred vision despite blood pressure is on the lower side 97/59 Discussed with the ration and his , GI recommended continuing current care Objective Vitals Vital Signs Date Time Temp Pulse Resp B/P Pulse Ox O2 Delivery O2 Flow Rate FiO2 02/03/17 09:03 86/56 90 90/60 02/03/17 08:36 83 02/03/17 08:06 89 Nasal Cannula 4.00 02/03/17 07:56 97.8 86 20 97/54 89 02/03/17 06:31 92 02/03/17 04:00 98.3 90 18 93/50 89 02/03/17 04:00 Nasal Cannula 4.00 02/03/17 02:48 97.0 86 16 95/57 91 02/03/17 00:00 Nasal Cannula 4.00 02/03/17 00:00 98.6 93 18 88/53 89 02/02/17 22:28 86 02/02/17 20:00 99.4 92 20 96/62 89 02/02/17 20:00 Nasal Cannula 4.00 02/02/17 19:46 92 Nasal Cannula 4.00 02/02/17 17:47 97.7 86 20 118/56 92 I/O 02/02/17 02/02/17 02/02/17 02/03/17 02/03/17 02/03/17 07:00 15:00 23:00 07:00 15:00 23:00 Intake Total 240 ml 420 ml 100 ml Output Total 400 ml 800 ml 400 ml 500 ml Balance -160 ml -800 ml 20 ml -400 ml Intake Oral 240 ml 420 ml 0 ml IV Total 100 ml Output Urine Total 400 ml 800 ml 400 ml 500 ml # Bowel Movements 0 0 Result Diagram: 02/03/17 0737 02/03/1737 Objective Remarks GENERAL: This is a well-nourished, well-developed patient, in no apparent distress. SKIN: No rashes, warm and dry HEAD: Atraumatic. Normocephalic. EYES: Pupils equal round and reactive. Extraocular motions intact. No scleral icterus. ENT: Nose without bleeding, or drainage, Airway patent. NECK: Trachea midline. Supple CARDIOVASCULAR: Regular rate and rhythm without murmurs, gallops, or rubs. RESPIRATORY: Fair air entry bilaterally. No wheezes, rales, or rhonchi. GASTROINTESTINAL: Abdomen soft, mildly tender with positive distention. Positive shifting dullness Positive bowel sounds MUSCULOSKELETAL: +2 lower extremity edema without clubbing, cyanosis, Pedal pulses appreciated NEUROLOGICAL: Awake and alert. Moves all extremity. Normal speech.no focal neurological deficit A/P Problem List: (1) Anasarca ICD Code: R60.1 Status: Acute (2) EVE (acute kidney injury) ICD Code: N17.9 Status: Acute Assessment and Plan 02/03: Continue current care, diuretic on hold due to low blood pressure, reviewed GI PN, creatinine improved to 1.79, continue 2 g sodium diet Initial A/P: 81 years old male admitted with Diffuse anasarca Ascites due to liver cirrhosis Dyspnea rule out hepatopulmonary syndrome Left lower lobe consolidation versus atelectasis on chest x-ray EVE on CKD EVE rule out hepatorenal syndrome Leukocytosis or left shift Thrombocytopenia mostly due to alcoholism Increase transaminase due to liver cirrhosis with increased alkaline phosphatase DVT prophylaxis with SCD will avoid chemical due to liver cirrhosis and thrombocytopenia, INR 1.2 Plan: Admit to inpatient Started diuretic Scheduled for paracentesis to send fluid for analysis I will start Rocephin prophylactically for SBP GI consulted appreciated their input Continue Spironolactone, monitor BMP Monitor CBC, LFT Saima Dee MD February 03, 2017 13:54
[2017-02-04] VITALS: BP 99/55; PULSE 89; RESP 22; TEMP 97.2; O2SAT 93
[2017-02-04 04:00] VITALS: BP 102/52; PULSE 88; RESP 22; TEMP 98; O2SAT 92
[2017-02-04] MEDS: cefTRIAXone INJ 2,000 MG in SODIUM CHLORIDE 0.9% INJ 100 ML IV SCH ×2 (05:10→15:48)
[2017-02-04 07:50] LABS: HEMATOCRIT 44.7 % (39.0-51.0); MEAN CELL VOLUME 98.7 FL (80.0-100.0); MEAN CORPUSCULAR HEMOGLOBIN 33.7 PG (27.0-34.0); MEAN CORPUSCULAR HGB CONC 34.2 % (32.0-36.0); PLATELET COUNT 39 TH/MM3 (150-450); RED BLOOD COUNT 4.52 MIL/MM3 (4.50-5.90); RED CELL DISTRIBUTION WIDTH 20.6 % (11.6-17.2); WHITE BLOOD COUNT 9.6 TH/MM3 (4.0-11.0)
[2017-02-04 08:00] VITALS: BP 97/52; PULSE 83; PULSE 86; RESP 18; TEMP 96; O2SAT 90
[2017-02-04 08:03] LABS: BICARBONATE 24.9 MEQ/L (21.0-32.0); POTASSIUM 5.1 MEQ/L (3.5-5.1)
[2017-02-04 08:17] LABS: HEMO FLAGS AUTO DIFF
[2017-02-04] MEDS: SODIUM CHLORIDE 0.9% FLUSH 10 ML FLUSH IV FLUSH SCH ×2 (08:49→20:42)
[2017-02-04] MEDS: DOCUSATE SODIUM 100 MG CAP PO SCH ×2 (08:49→20:42)
[2017-02-04] MEDS: ALLOPURINOL 300 MG TAB PO SCH (08:49)
[2017-02-04] MEDS: ASPIRIN 81 MG CHEW TAB CHEW SCH (08:49)
[2017-02-04] MEDS: MULTIVITAMINS/MINERALS THERAPEUTIC TAB PO SCH (08:49)
[2017-02-04 09:02] LABS: NEUTROPHIL # MANUAL DIFF 1.8 TH/MM3 (1.8-7.7); POLYS (SEG NEUTROPHILS) 19 % (16-70); WBC DIFF SAMPLE 100
[2017-02-04 09:05] LABS: PLATELET ESTIMATE SMEAR LOW (NORMAL); PLATELET MORPHOLOGY NORMAL (NORMAL); SCAN/DIFF FINAL DIFF MANUAL
[2017-02-04 09:06] LABS: SMUDGE CELLS PRESENT PRESENT
[2017-02-04 12:00] VITALS: BP 102/55; PULSE 86; RESP 20; TEMP 97.3; O2SAT 96
--- NOTE | 2017-02-04 15:12 | HHI.PR ---
Subjective Remarks Afebrile resting in bed Family at the bedside Blood pressure relatively better 104/56, diuretic on hold Complain of constipation Objective Vitals Vital Signs Date Time Temp Pulse Resp B/P Pulse Ox O2 Delivery O2 Flow Rate FiO2 02/04/17 12:00 97.3 86 20 102/55 96 02/04/17 08:00 Nasal Cannula 4.00 02/04/17 08:00 96.0 86 18 97/52 90 Automatic Cuff 02/04/17 08:00 83 02/04/17 04:00 98.0 88 22 102/52 92 02/04/17 00:00 97.2 89 22 99/55 93 02/03/17 20:00 98.2 85 20 102/59 91 02/03/17 20:00 84 02/03/17 20:00 Nasal Cannula 4.00 02/03/17 16:00 98.2 80 20 98/56 90 I/O 02/03/17 02/03/17 02/03/17 02/04/17 02/04/17 02/04/17 07:00 15:00 23:00 07:00 15:00 23:00 Intake Total 100 ml 360 ml 120 ml Output Total 500 ml 200 ml 200 ml Balance -400 ml 160 ml -80 ml Intake Oral 0 ml 360 ml 120 ml IV Total 100 ml Output Urine Total 500 ml 200 ml 200 ml # Voids 1 # Bowel Movements 0 0 0 Result Diagram: 02/04/17 0500 02/04/17 0500 Objective Remarks GENERAL: This is a well-nourished, well-developed patient, in no apparent distress. SKIN: No rashes, warm and dry HEAD: Atraumatic. Normocephalic. EYES: Pupils equal round and reactive. Extraocular motions intact. No scleral icterus. ENT: Nose without bleeding, or drainage, Airway patent. NECK: Trachea midline. Supple CARDIOVASCULAR: Regular rate and rhythm without murmurs, gallops, or rubs. RESPIRATORY: Fair air entry bilaterally. No wheezes, rales, or rhonchi. GASTROINTESTINAL: Abdomen soft, mildly tender with positive distention. Positive shifting dullness Positive bowel sounds MUSCULOSKELETAL: +2 lower extremity edema without clubbing, cyanosis, Pedal pulses appreciated NEUROLOGICAL: Awake and alert. Moves all extremity. Normal speech.no focal neurological deficit A/P Problem List: (1) Anasarca ICD Code: R60.1 Status: Acute (2) EVE (acute kidney injury) ICD Code: N17.9 Status: Acute Assessment and Plan 02/03: Continue current care, diuretic on hold due to low blood pressure, reviewed GI PN, creatinine improved to 1.79, continue 2 g sodium diet 02/04: Still hypotensive, diuretic on hold, GI following, creatinine improving, hopefully DC in a.m. if blood pressure improved , Dulcolax for constipation Initial A/P: 81 years old male admitted with Diffuse anasarca Ascites due to liver cirrhosis Dyspnea rule out hepatopulmonary syndrome Left lower lobe consolidation versus atelectasis on chest x-ray EVE on CKD EVE rule out hepatorenal syndrome Leukocytosis or left shift Thrombocytopenia mostly due to alcoholism Increase transaminase due to liver cirrhosis with increased alkaline phosphatase DVT prophylaxis with SCD will avoid chemical due to liver cirrhosis and thrombocytopenia, INR 1.2 Plan: Admit to inpatient Started diuretic Scheduled for paracentesis to send fluid for analysis I will start Rocephin prophylactically for SBP GI consulted appreciated their input Continue Spironolactone, monitor BMP Monitor CBC, LFT Discharge Planning DC blood pressure improved and cleared by Saima Esteban MD February 04, 2017 15:12
[2017-02-04] MEDS ORDERED: BISACODYL 10 MG SUPP RECTAL PRN (15:15)
[2017-02-04 16:00] VITALS: BP 104/52; PULSE 79; RESP 20; TEMP 97.6; O2SAT 94
[2017-02-04 20:00] VITALS: BP 107/62; PULSE 103; PULSE 80; RESP 18; TEMP 96.3; O2SAT 92
[2017-02-05] VITALS: BP 99/55; PULSE 82; RESP 21; TEMP 97.4; O2SAT 92
[2017-02-05] MEDS: cefTRIAXone INJ 2,000 MG in SODIUM CHLORIDE 0.9% INJ 100 ML IV SCH (04:30)
[2017-02-05 04:41] VITALS: BP 92/57; PULSE 91; RESP 21; TEMP 97.5; O2SAT 92
[2017-02-05 08:00] VITALS: PULSE 89
[2017-02-05 08:30] VITALS: BP 88/52; PULSE 88; RESP 19; TEMP 97.4; O2SAT 94
[2017-02-05] MEDS: DOCUSATE SODIUM 100 MG CAP PO SCH (09:00)
[2017-02-05] MEDS: MULTIVITAMINS/MINERALS THERAPEUTIC TAB PO SCH (09:55)
[2017-02-05] MEDS: ALLOPURINOL 300 MG TAB PO SCH (09:55)
[2017-02-05] MEDS: SODIUM CHLORIDE 0.9% FLUSH 10 ML FLUSH IV FLUSH SCH (09:55)
[2017-02-05] MEDS: ASPIRIN 81 MG CHEW TAB CHEW SCH (09:55)
[2017-02-05] MEDS ORDERED: CEFT500T3 PO (10:41)
--- NOTE | 2017-02-05 10:47 | HHI.DS ---
Discharge Summary Admission Date Feb 01, 2017 at 18:11 Discharge Date: February 05, 2017 Admitting Diagnosis Anasarca, SOB (1) Anasarca ICD Code: R60.1 (2) EVE (acute kidney injury) ICD Code: N17.9 Procedures Paracentesis Brief History - From Admission Mr. Yadav is an 81 year old male. He has a recent history of Acites and is returning today with recurrence of symptoms. His last (and first) paracentesis was about two weeks ago. He is unaware of the cause and reports no knowledge of liver disease. The onset of his ascites has been gradual over the two weeks. He feels it is as bad as previously. No fevers are reported. No abdominal pain other than discomfort from ascites. Additionally tonight his renal function is worse than baseline (CKD) with a creatinine of 1.99. WBCs are elevated, but neutrophils are not, suggesting a reactive phenomenon rather than infection. CBC/BMP: 02/04/17 0500 02/04/17 0500 Significant Findings Laboratory Tests Test 02/03/17 02/04/17 07:37 05:00 Red Blood Count 4.34 MIL/MM3 (4.50-5.90) Red Cell Distribution Width 21.1 % 20.6 % (11.6-17.2) (11.6-17.2) Platelet Count 56 TH/MM3 39 TH/MM3 (150-450) (150-450) Lymphocytes (%) (Auto) 70.0 % (9.0-44.0) Lymphocytes # (Auto) 5.6 TH/MM3 (1.0-4.8) Lymphocytes % 73 % (9-44) 72 % (9-44) Neutrophils # (Manual) 1.7 TH/MM3 (1.8-7.7) Platelet Estimate LOW (NORMAL) LOW (NORMAL) Sodium Level 135 MEQ/L 130 MEQ/L (136-145) (136-145) Blood Urea Nitrogen 45 MG/DL (7-18) 38 MG/DL (7-18) Creatinine 1.79 MG/DL 1.52 MG/DL (0.60-1.30) (0.60-1.30) Estimat Glomerular Filtration 37 ML/MIN (>89) 44 ML/MIN (>89) Rate Calcium Level 8.3 MG/DL 7.9 MG/DL (8.5-10.1) (8.5-10.1) Total Bilirubin 1.6 MG/DL (0.2-1.0) Direct Bilirubin 0.8 MG/DL (0.0-0.2) Aspartate Amino Transf 57 U/L (15-37) (AST/SGOT) Alkaline Phosphatase 219 U/L (45-117) Total Protein 5.5 GM/DL (6.4-8.2) Albumin 2.6 GM/DL (3.4-5.0) Monocytes % 9 % (0-8) Chloride Level 96 MEQ/L (98-107) PE at Discharge GENERAL: This is a well-nourished, well-developed patient, in no apparent distress. SKIN: No rashes, warm and dry HEAD: Atraumatic. Normocephalic. EYES: Pupils equal round and reactive. Extraocular motions intact. No scleral icterus. ENT: Nose without bleeding, or drainage, Airway patent. NECK: Trachea midline. Supple CARDIOVASCULAR: Regular rate and rhythm without murmurs, gallops, or rubs. RESPIRATORY: Fair air entry bilaterally. No wheezes, rales, or rhonchi. GASTROINTESTINAL: Abdomen soft, mildly tender with positive distention. Positive shifting dullness Positive bowel sounds MUSCULOSKELETAL: +2 lower extremity edema without clubbing, cyanosis, Pedal pulses appreciated NEUROLOGICAL: Awake and alert. Moves all extremity. Normal speech.no focal neurological deficit Hospital Course 81 years old male admitted with diffuse anasarca ascites due to liver cirrhosis along with dyspnea hospital at the pulmonary syndrome, also lower lobe consolidation versus atelectasis on chest x-ray but no clinical signs of pneumonia and a [facility], GI consulted, patient had paracentesis started on Rocephin prophylactically for SBP, patient sustained low blood pressure around 80 systolic but without symptoms. Therefore diuretic Lasix and spironolactone placed on hold, discharging patient for clearance by GI to follow up as an outpatient Pt Condition on Discharge: Stable Discharge Disposition: Discharge Home Discharge Time: <= 30 minutes Discharge Instructions DIET: Follow Instructions for: Heart Healthy Diet, Low Sodium Diet Additional Diet Instructions: 2gm sodium Activities you can perform: Weight Bearing as Jostin Follow up Referrals: Gastroenterology - 2-3 Days with Fabián Mejia MD New Medications: Cefuroxime (Ceftin) 500 Mg Tab 500 MG PO BID Infection #14 Ref 0 TAB Midodrine (Midodrine) 2.5 Mg Tab 2.5 MG PO BID Control Low Blood Pressure #60 Ref 0 TAB Continued Medications: Allopurinol (Allopurinol) 300 Mg Tab 300 MG PO DAILY Gout #30 Ref 0 TAB Amlodipine (Amlodipine) 5 Mg Tab 5 MG PO DAILY Blood Pressure Management #30 Ref 0 TAB Aspirin (Aspirin) 81 Mg Chew 81 MG CHEW DAILY Ref 0 TAB Multiple Vitamins W/ Minerals (Multivitamin Adults) 1 Tab 1 TAB PO DAILY Nutritional Supplement Ref 0 TAB Saima Dee MD February 05, 2017 10:47
--- NOTE | 2017-02-05 10:49 | HHI.PR ---
Subjective Remarks 81 years old male admitted with diffuse anasarca ascites due to liver cirrhosis along with dyspnea hospital at the pulmonary syndrome, also lower lobe consolidation versus atelectasis on chest x-ray but no clinical signs of pneumonia and a [facility], GI consulted, patient had paracentesis started on Rocephin prophylactically for SBP, patient sustained low blood pressure around 80 systolic but without symptoms. Therefore diuretic Lasix and spironolactone placed on hold Today patient still having low blood pressure in the 80s manually I discussed with the nurse, however he denied any symptoms he tried to walk in the hallway, will place a call for GI for further discussion about the case, creatinine is trending down nicely from 1.9, today is 1.5, diuretic still on hold, is on Rocephin, no clinical signs of pneumonia Objective Vitals Vital Signs Date Time Temp Pulse Resp B/P Pulse Ox O2 Delivery O2 Flow Rate FiO2 02/05/17 08:30 97.4 88 19 88/52 94 02/05/17 04:41 97.5 91 21 92/57 92 02/05/17 04:00 Nasal Cannula 4.00 02/05/17 00:00 97.4 82 21 99/55 92 02/05/17 00:00 Nasal Cannula 4.00 02/04/17 20:00 103 02/04/17 20:00 Nasal Cannula 4.00 02/04/17 20:00 96.3 80 18 107/62 92 02/04/17 16:00 97.6 79 20 104/52 94 02/04/17 12:00 97.3 86 20 102/55 96 I/O 02/04/17 02/04/17 02/04/17 02/05/17 02/05/17 02/05/17 07:00 15:00 23:00 07:00 15:00 23:00 Intake Total 480 ml 380 ml 380 ml Output Total 400 ml Balance 80 ml 380 ml 380 ml Intake Oral 480 ml 380 ml 380 ml Output Urine Total 400 ml # Voids 3 3 # Bowel Movements 0 3 3 Result Diagram: 02/04/17 0500 02/04/17 0500 Objective Remarks GENERAL: This is a well-nourished, well-developed patient, in no apparent distress. SKIN: No rashes, warm and dry HEAD: Atraumatic. Normocephalic. EYES: Pupils equal round and reactive. Extraocular motions intact. No scleral icterus. ENT: Nose without bleeding, or drainage, Airway patent. NECK: Trachea midline. Supple CARDIOVASCULAR: Regular rate and rhythm without murmurs, gallops, or rubs. RESPIRATORY: Fair air entry bilaterally. No wheezes, rales, or rhonchi. GASTROINTESTINAL: Abdomen soft, mildly tender with positive distention. Positive shifting dullness Positive bowel sounds MUSCULOSKELETAL: +2 lower extremity edema without clubbing, cyanosis, Pedal pulses appreciated NEUROLOGICAL: Awake and alert. Moves all extremity. Normal speech.no focal neurological deficit Procedures Paracentesis A/P Problem List: (1) Anasarca ICD Code: R60.1 Status: Acute (2) EVE (acute kidney injury) ICD Code: N17.9 Status: Acute Assessment and Plan Initial A/P: 81 years old male admitted with Diffuse anasarca Hypotension: Mostly due to third spacing, continue holding diuretics Ascites due to liver cirrhosis Dyspnea rule out hepatopulmonary syndrome Left lower lobe consolidation versus atelectasis on chest x-ray EVE on CKD EVE rule out hepatorenal syndrome Leukocytosis or left shift Thrombocytopenia mostly due to alcoholism Increase transaminase due to liver cirrhosis with increased alkaline phosphatase and bilirubin: All trending down DVT prophylaxis with SCD will avoid chemical due to liver cirrhosis and thrombocytopenia, INR 1.2 Plan: Diuretic on hold due to hypotension Status post therapeutic paracentesis Started Rocephin prophylactically for SBP GI consulted appreciated their input monitor BMP, consider nephrology consultation Monitor CBC, LFT Discharge Planning DC blood pressure improved and cleared by Saima Esteban MD February 05, 2017 10:49
[2017-02-05 12:12] VITALS: BP 92/54; PULSE 82; RESP 18; TEMP 97.4; O2SAT 95
--- NOTE | 2017-02-05 13:06 | HHI.GIFU ---
GI Follow-up Note Consult Follow-up Pt feeling better, hypotension no symptoms. labs improving plan for discharge today. No overt objection from gi stand point. It was a pleasure seeing Will Yadav. Thank you for this consult. Entered by: Jagruti Marin MD February 05, 2017 13:06
[2017-02-05] MEDS ORDERED: MIDO2.5T PO (14:09)
--- NOTE | 2017-02-05 23:01 | RADRPT ---
EXAM DATE/TIME: 02/02/2017 16:35 [facility] COMPARISON: No previous studies available for comparison. INDICATIONS : Liver function. SEDATION TIME: 30 minutes BIOPSY SITE: liver MEDICATION(S): 1.) 0.5 mg midazolam (Versed) IV 2.) 25 mcg fentanyl (Sublimaze) IV DEVICE(S): 1.) 18 gauge Temno core biopsy needle MEDICAL HISTORY : Cirrhosis. SURGICAL HISTORY : None. ENCOUNTER: Initial ACUITY: 1 day PAIN SCORE: 0/10 LOCATION: Liver. A total of three core specimen(s) were obtained and sent to the laboratory for pathologic evaluation. PROCEDURE: 1. CT guided liver biopsy. 2. Conscious sedation with continuous EKG and oximetry monitoring. 3. EKG and oximetry remained stable throughout the procedure. Prior to the procedure informed consent was obtained. Any appropriate prior imaging studies were rev iewed. Using automated exposure control and adjustment of the mA and/or kV according to patient size, radiat ion dose was kept as low as reasonably achievable to obtain optimal diagnostic quality images. The site was prepped in a sterile fashion. Full sterile technique was used, including cap, mask, georgie rile gloves and gown and a large sterile sheet. Hand hygiene and 2% chlorhexidine and/or betadine/al cohol prep was utilized per protocol for cutaneous antisepsis. The skin and subcutaneous tissues wer e infiltrated with local anesthetic solution. With CT guidance the previously identified target was localized. Biopsy was performed using the presc ribed needle as above. Adequate hemostasis was obtained with compression at the puncture site. Follow-up CT scan reveals no hemorrhage. The patient tolerated the procedure well and there were no complications. The patient was returned to the Radiology Outpatient Unit in stable condition. CONCLUSION: Uncomplicated CT guided biopsy of the liver. Clarence Swartz MD on February 05, 2017 at 22:59 Board Certified Radiologist. This report was verified electronically.
--- NOTE | 2017-02-05 23:01 | RADRPT ---
EXAM DATE/TIME: 02/02/2017 16:35 [facility] COMPARISON: No previous studies available for comparison. INDICATIONS : Ascites. SEDATION TIME: 30 minutes MEDICATION(S): 1.) 0.5 mg midazolam (Versed) IV 2.) 25 mcg fentanyl (Sublimaze) IV DEVICE(S): 1.) 18 gauge Temno core biopsy needle Total volume of 4100 cc of clear, red fluid was removed. Fluid was sent for laboratory ordered studies. MEDICAL HISTORY : Cirrhosis. SURGICAL HISTORY : None. ENCOUNTER: Initial ACUITY: 1 day PAIN SCORE: 0/10 LOCATION: abdomen. PROCEDURE: PROCEDURE : 1. CT-guidance for abdominal paracentesis. 2. Paracentesis. The risks, benefits and alternatives to CT-guided paracentesis were explained to the patient in detai l, lay terms including the risk of bleeding and infection. Oral and written informed consent was obt ained. Using automated exposure control and adjustment of the mA and/or kV according to patient size, radiation dose was kept as low as reasonably achievable to obtain optimal diagnostic quality images. The patient was scanned to select approach for paracentesis. The skin was prepped in sterile fashion . The skin and subcutaneous tissues were infiltrated with Lidocaine solution. A 6 Tamazight catheter w as introduced to the peritoneal cavity and ascites was collected. Post procedure scanning reveals no evidence of hematoma or other complication. The patient tolerated the procedure well and left the CT suite in good condition. CONCLUSION: Uncomplicated CT Guided paracentesis. Clarence Swartz MD on February 05, 2017 at 23:00 Board Certified Radiologist. This report was verified electronically.
== END 2017-02-05 15:15 | disposition home or self-care (01) | DRG 433 ==
LOC: NEPE 12:22 → NEDA 18:11 → N04A 20:37
PROVIDERS: ADMIT Hospitalist; ATTEND Hospitalist
PROC: 0FB03ZX Excision of Liver, Percutaneous Approach, Diagnostic (ICD-10-PCS; principal; 2017-02-02)
PROC: 0W9G3ZX Drainage of Peritoneal Cavity, Percutaneous Approach, Diagnostic (ICD-10-PCS; 2017-02-02)
DX: K74.60 Unspecified cirrhosis of liver (principal); N17.9 Acute kidney failure, unspecified; R18.8 Other ascites; I95.9 Hypotension, unspecified; D69.59 Other secondary thrombocytopenia; E78.5 Hyperlipidemia, unspecified; M10.9 Gout, unspecified; Z87.891 Personal history of nicotine dependence; F10.20 Alcohol dependence, uncomplicated; K59.00 Constipation, unspecified; I12.9 Hypertensive chronic kidney disease with stage 1 through stage 4 chronic kidney disease, or unspecified chronic kidney disease; N18.9 Chronic kidney disease, unspecified
CPT/HCPCS: 47000; 49083; 71020; 77012; 80048; 80053; 80076; 81001; 82550; 83735; 83880; 84484; 85007; 85027; 85610; 85730; 88307; 88313; 93005; 96374; 99152; 99153; C1729; J0696; J1940; J2250; J3010